=== PATIENT | female | born 1980 | race Caucasian/White ===

== ENCOUNTER 2020-08-30 15:44 | Inpatient (IN) | payer BC ==
[~2020-08-30] VITALS: Ht 167.6 cm; Wt 98.4 kg
--- NOTE | 2020-08-30 15:49 | NUR ---
[id number] c/o sudden onset chest pain while getting iv vitamins. Patient a/ox4, breathing even and unlabored, no sob noted. Dr. Harris at bedside for eval.
--- NOTE | 2020-08-30 16:02 | NUR ---
iv line establisged, blood drawn and urine sent to lab.
[2020-08-30 16:16] LABS: BASOPHILS % (AUTO) 0.3 % (0.0-2.0); EOSINOPHILS % (AUTO) 1.3 % (0.0-6.0); HEMATOCRIT 42 % (33-45); HEMOGLOBIN 14.6 g/dL (11.5-14.8); LYMPHOCYTES # (AUTO) 1.7 /CMM (0.8-4.8); LYMPHOCYTES % (AUTO) 25.4 % (20.0-44.0); MEAN CORPUSCULAR HGB CONC 35 g/dl (31.0-36.0); MEAN CORPUSCULAR VOLUME 86 fL (82-100); MONOCYTES # (AUTO) 0.3 /CMM (0.1-1.30); MONOCYTES % (AUTO) 4.9 % (2.0-12.0); NEUTROPHILS # (AUTO) 4.6 /CMM (1.8-8.9); NEUTROPHILS % (AUTO) 68.1 % (43.0-81.0); PLATELET COUNT (AUTO) 197 /CMM (150-450); RED BLOOD CELL COUNT(AUTO) 4.91 MIL/uL (4.0-5.2); WHITE BLOOD COUNT (AUTO) 6.7 K/uL (4.3-11.0)
[2020-08-30 16:32] LABS: ALANINE AMINOTRANSFERASE 21 U/L (12-78); ALBUMIN 4.2 g/dL (3.4-5.0); ALKALINE PHOSPHATASE 61 U/L (46-116); ASPARTATE AMINOTRANSFERASE 17 U/L (15-37); BILIRUBIN,DIRECT 0.1 mg/dL (0.0-0.2); BILIRUBIN,TOTAL 0.5 mg/dL (0.2-1.0); CALCIUM, SERUM 8.8 mg/dL (8.5-10.1); CARBON DIOXIDE 31 mmol/L (21-32); CHLORIDE 105 mmol/L (98-107); CREATININE 0.8 mg/dL (0.6-1.3); GLUCOSE 97 mg/dL (74-106); POTASSIUM 3.6 mmol/L (3.5-5.1); SODIUM SERUM 143 mmol/L (136-145); TOTAL PROTEIN, SERUM 7.6 g/dL (6.4-8.2); UREA NITROGEN, BLOOD 14 mg/dL (7-18)
--- NOTE | 2020-08-30 17:12 | NUR ---
PATIENT INFORMED OF NEXT PLAN A VQ SCAN, PATIENT IS GOING TO THINK ABOUT IT.
[2020-08-30] MEDS ORDERED: ENOXAPARIN SODIUM 100 MG/ML DISP.SYRIN SQ ONE ×2 (17:49→18:00)
--- NOTE | 2020-08-30 17:50 | NUR ---
US TECH AT BEDSIDE FOR DOPPLER.
[2020-08-30] MEDS ORDERED: LOSA1TAB36 PO (17:55)
--- NOTE | 2020-08-30 17:56 | NUR ---
patient agreed to be admitted, Rayray Khan DNP at bedside.
--- NOTE | 2020-08-30 18:23 | NUR ---
COVID SWAB SENT TO LAB.
[2020-08-30] MEDS ORDERED: MAGNESIUM HYDROXIDE 30 ML UDC PO PRN (19:00)
[2020-08-30] MEDS ORDERED: TEMAZEPAM 15 MG CAPSULE PO PRN (19:00)
[2020-08-30] MEDS ORDERED: MORPHINE SULFATE INJ 2 MG/ML DISP.SYRIN IV PRN (19:00)
[2020-08-30] MEDS ORDERED: ONDANSETRON HCL/PF 4 MG/2 ML VIAL IVP PRN (19:00)
[2020-08-30] MEDS ORDERED: ACETAMINOPHEN 325 MG TABLET PO PRN (19:00)
[2020-08-30] MEDS ORDERED: Z GUARD REMEDY 2 OZ OINT TP PRN (19:00)
[2020-08-30] MEDS ORDERED: IV NS 0.9% 1,000 ML IV PRN (19:00)
[2020-08-30] MEDS ORDERED: MAG HYDROX/AL HYDROX/SIMETH 30 ML UDC PO PRN (19:00)
--- NOTE | 2020-08-30 19:33 | NUR ---
REPORT GIVEN TO KIMO DOUGHERTY FOR PAMELLA.
[2020-08-30] MEDS ORDERED: MORPHINE SULFATE INJ 4 MG/ML DISP.SYRIN IV PRN (19:52)
--- NOTE | 2020-08-30 20:22 | NUR ---
PT RETURNED FROM [facility]
--- NOTE | 2020-08-30 21:08 | NUR ---
Patient does not wish to proceed with medical care recommended by Dr. Harris and Dr. Butler. Patient given information related to possible complications, up to and including , which could occur as a result of leaving the hospital at this time. Patient verbalizes understanding of risks involved due to leaving against medical advice. Patient has signed AMA form. IV removed. Catheter intact and site benign. Pressure and 4x4 applied to site. No bleeding noted.Pt ambulatory with a steady gait
[2020-08-30 21:09] VITALS: BP 115/86
[2020-08-31] MEDS ORDERED: ENOXAPARIN SODIUM 100 MG/ML DISP.SYRIN SQ SCH (06:00)
[2020-08-31] MEDS ORDERED: PANTOPRAZOLE 40 MG TABLET.DR PO SCH (07:30)
== END 2020-08-30 21:08 | disposition left against medical advice (07) | DRG 392 ==
LOC: ER 15:56 → TRANSITION 19:37
PROVIDERS: ADMIT Nurse Practitioner Acute Care; ATTEND Nurse Practitioner Acute Care
DX: K21.9 Gastro-esophageal reflux disease without esophagitis (principal); D68.51 Activated protein C resistance; E66.01 Morbid (severe) obesity due to excess calories; I10 Essential (primary) hypertension; Z68.35 Body mass index [BMI] 35.0-35.9, adult; Z20.822 Contact with and (suspected) exposure to COVID-19; Z98.891 History of uterine scar from previous surgery; Z82.49 Family history of ischemic heart disease and other diseases of the circulatory system; Z91.041 Radiographic dye allergy status
CPT/HCPCS: 36415; 71045-TC; 78582; 80048-TC; 80076-TC; 84484-TC; 85025-TC; 85378-TC; 87081-TC; 93970-TC; A9540; A9567; C9803; G0378; J1650